=== PATIENT | male | born 1950 | race Caucasian/White ===

== ENCOUNTER 2017-11-09 20:31 | Observation (INO) | payer BC, OTHER ==
[~2017-11-09] VITALS: Ht 182.9 cm; Wt 94.0 kg
[2017-11-09 22:10] LABS: HEMATOCRIT 37.5 % (38.0-50.0); HEMOGLOBIN 13.8 G/DL (12.5-16.6); MCH 34.2 PG (29.0-34.0); MCHC 36.8 G/DL (30.0-36.0); MCV 93.1 FL (86-99); NRBC (%) 0.3 /100 WBC (0-0); PLATELET COUNT 341 K/uL (156-360); RBC DIS.WIDTH-CV 16.9 % (11.8-14.6); RBC DIS.WIDTH-SD 56.3 % (39-53); RED BLOOD COUNT 4.03 M/uL (4.00-5.50); WHITE BLOOD COUNT 15.1 K/uL (4.1-10.2)
[2017-11-09 22:35] LABS: CHLORIDE 103 mEq/L (99-109); POTASSIUM 3.9 mEq/L (3.7-5.4); SODIUM 139 mEq/L (136-147)
[2017-11-09 22:37] LABS: TROP-I INTERPRETATION NEGATIVE; TROPONIN-I 0.02 ng/mL (0.0-0.30)
[2017-11-09 22:37] LABS: GLUCOSE 109 mg/dL (70-99)
[2017-11-09 22:41] LABS: CREATININE 1.3 mg/dL (0.6-1.3); GFR ESTIMATE (CALCULATED) 59 mL/min/ (58.99-99999); UREA NITROGEN (BUN) 20 mg/dL (9-23)
[2017-11-10 03:14] VITALS: BP 149/79
[2017-11-10 03:28] LABS: ALKALINE PHOSPHATASE 82 IU/L (3-129); ALT (GPT) 10 IU/L (3-49); AST (GOT) 12 IU/L (2-34); DIRECT BILIRUBIN 0.2 mg/dL (0.0-0.3); TOTAL BILIRUBIN 1.4 MG/DL (0.0-1.0); TOTAL PROTEIN 6.9 G/DL (6.4-8.3)
[2017-11-10] MEDS ORDERED: LISINOPRIL20 MG PO (03:28)
[2017-11-10] MEDS ORDERED: PREDNISONE20 MG PO (03:28)
[2017-11-10] MEDS ORDERED: FOLIC ACID1 MG PO (03:30)
[2017-11-10] MEDS ORDERED: FLUOXETINE HCL20 MG PO (03:31)
[2017-11-10] MEDS ORDERED: HYDROCHLOROTH12.5 M3 PO (03:32)
[2017-11-10] MEDS ORDERED: ATORVASTATIN CA40 MG PO (03:33)
[2017-11-10 06:06] LABS: HEMATOCRIT 34.1 % (38.0-50.0); HEMOGLOBIN 12.1 G/DL (12.5-16.6); MCH 33.8 PG (29.0-34.0); MCHC 35.5 G/DL (30.0-36.0); MCV 95.3 FL (86-99); NRBC (%) 0.2 /100 WBC (0-0); PLATELET COUNT 312 K/uL (156-360); RBC DIS.WIDTH-SD 57.6 % (39-53); RED BLOOD COUNT 3.58 M/uL (4.00-5.50); WHITE BLOOD COUNT 14.1 K/uL (4.1-10.2)
[2017-11-10 06:17] LABS: TROP-I INTERPRETATION NEGATIVE; TROPONIN-I 0.02 ng/mL (0.0-0.30)
[2017-11-10 06:28] LABS: CHLORIDE 102 MEQ/L (99-109); CREATININE 1.4 MG/DL (0.6-1.3); GFR ESTIMATE (CALCULATED) 54 mL/min/ (58.99-99999); GLUCOSE 163 mg/dL (70-99); POTASSIUM 4.2 MEQ/L (3.7-5.4); SODIUM 140 MEQ/L (136-147); UREA NITROGEN (BUN) 21 mg/dL (9-23)
[2017-11-10 07:30] LABS: THYROTROPIN (TSH) 3.4 MIU/L (0.4-5.5)
[2017-11-10 09:08] VITALS: BP 143/81
[2017-11-10 10:26] LABS: TROP-I INTERPRETATION NEGATIVE; TROPONIN-I 0.03 ng/mL (0.0-0.30)
[2017-11-10] MEDS ORDERED: ERGOCALCIF50000 UNIT PO (11:48)
[2017-11-10] MEDS ORDERED: ASPIRIN81 M2 PO (11:49)
[2017-11-10 11:56] VITALS: BP 119/68
[2017-11-10 16:37] VITALS: BP 115/61
[2017-11-10] MEDS ORDERED: VENTOLIN HFA18 GM IH (17:22)
[2017-11-10] MEDS ORDERED: CARDIZEM CD120 M1 PO (17:23)
[2017-11-10] MEDS ORDERED: LISINOPRIL10 MG PO (17:23)
== END 2017-11-10 20:10 | disposition home or self-care (01) ==
LOC: EME 20:31 → EDOF 11-10 02:20 → ENRESERV 11-10 02:21 → 5WEST 11-10 03:04
PROVIDERS: Hospitalist; Nurse Practitioner Family
DX: J20.9 Acute bronchitis, unspecified (principal); J43.9 Emphysema, unspecified; I47.1 Supraventricular tachycardia; F17.200 Nicotine dependence, unspecified, uncomplicated; D68.9 Coagulation defect, unspecified; I11.9 Hypertensive heart disease without heart failure; I25.84 Coronary atherosclerosis due to calcified coronary lesion; I27.20 Pulmonary hypertension, unspecified; D58.9 Hereditary hemolytic anemia, unspecified; Z79.52 Long term (current) use of systemic steroids; N28.9 Disorder of kidney and ureter, unspecified; E11.9 Type 2 diabetes mellitus without complications; E78.5 Hyperlipidemia, unspecified; I44.7 Left bundle-branch block, unspecified; Z82.5 Family history of asthma and other chronic lower respiratory diseases; Z83.3 Family history of diabetes mellitus; Z88.0 Allergy status to penicillin
CPT/HCPCS: 71046; 71275; 80048; 80076; 82948; 84443; 84484; 85027; 85379; 93005; 93306; 94640; 99202; 99281; 99284; G0378; J1650; J7512

== ENCOUNTER 2017-12-10 07:37 | Day surgery (SDC) | payer BC, OTHER ==
[~2017-12-10] VITALS: Ht 182.9 cm; Wt 95.2 kg
[~2017-12-10 07:37] MED LIST: ASPIRIN81 M2 PO; ATORVASTATIN CA40 MG PO; CARDIZEM CD120 M1 PO; ERGOCALCIF50000 UNIT PO; FLUOXETINE HCL20 MG PO; FOLIC ACID1 MG PO; HYDROCHLOROTH12.5 M3 PO; LISINOPRIL10 MG PO; LISINOPRIL20 MG PO; PREDNISONE10 MG PO; VENTOLIN HFA18 GM IH
== END 2017-12-10 14:10 | disposition home or self-care (01) ==
LOC: CATH 07:37
PROC: 4A023N7 Measurement of Cardiac Sampling and Pressure, Left Heart, Percutaneous Approach (ICD-10-PCS; principal; 2017-12-10)
PROC: B2151ZZ Fluoroscopy of Left Heart using Low Osmolar Contrast (ICD-10-PCS; principal; 2017-12-10)
PROC: B2111ZZ Fluoroscopy of Multiple Coronary Arteries using Low Osmolar Contrast (ICD-10-PCS; principal; 2017-12-10)
DX: I25.10 Atherosclerotic heart disease of native coronary artery without angina pectoris (principal); I25.82 Chronic total occlusion of coronary artery; I42.9 Cardiomyopathy, unspecified; J44.9 Chronic obstructive pulmonary disease, unspecified; I10 Essential (primary) hypertension; E78.5 Hyperlipidemia, unspecified; E11.9 Type 2 diabetes mellitus without complications; Z79.82 Long term (current) use of aspirin
CPT/HCPCS: C1769; C1887; J1644; J2250; J3010; J7040